=== PATIENT | male | born 1925 | race Caucasian/White ===

== ENCOUNTER 2017-10-20 23:04 | Inpatient (IN) ==
[2017-10-21] MEDS ORDERED: Bisacodyl 10 MG Supp RECTAL PRN (06:48)
[2017-10-21] MEDS ORDERED: Acetaminophen 325 MG Tablet PO PRN (06:48)
--- NOTE | 2017-10-21 09:10 | P.HP ---
History of Present Illness Primary Care Physician: Dr Munoz Chief Complaint: Hypoxia and fall History of Present Illness: This is a 89-year-old male with a history of seizure disorder, traumatic brain injury, encephalitis, anxiety, hyperlipidemia, hypertension, peripheral vascular disease status post bilateral CEA and chronic respiratory failure from a lung condition (patient and not able to specify, both not a good historian. Also denies history of heart disease). Family history of hypertension. Patient recently discharged from [facility] because of colitis. Yesterday patient's called 911 because the pulse oximeter machine was beeping and found out that the machine was not plugged in. At that time, patient denies any symptoms including chest pain and shortness of breath. Yesterday he had a fall from losing his balance and hit his right upper back. Denies head and neck injury. No loss of consciousness. Patient states he has been having falls for the last 2 years. In the emergency department, patient was found to have elevated troponin. EKG tracing interpreted by me showing sinus rhythm with a right bundle branch block no previous EKG for comparison. Patient denies history of heart disease, DVT and PE. He has chronic bilateral lower extremity swelling but denies dyspnea on exertion, orthopnea and proximal nocturnal dyspnea. States he takes about 3-6 medications unable to recall. He gets his medicines from [facility] RN requested to obtain med list. Also to call back with medication list. All other systems reviewed negative Inpatient Certification: I certify that the inpatient services were ordered in accordance with Medicare regulations governing the order. This includes certification that hospital inpatient services are reasonable and necessary and in the case of services not specified as inpatient-only under 42 CFR 419.22(n), that they are appropriately provided as inpatient services in accordance to with the 2-midnight benchmark under 43 CFR 412.3(e) Review of Systems All other systems reviewed negative except as stated in HPI PMFSH - History History Provided By: Patient, Family Member - Medical History Medical History: Medical History (Last Reviewed 10/21/17 @ 04:36 by Ander Leblanc) Anxiety High cholesterol Hypertension Seizure - Surgical History Surgical History: Surgical History (Last Reviewed 10/21/17 @ 04:36 by Ander Leblanc) Hx of hernia repair - Tobacco History Smoking Status: Former smoker - Alcohol History How Often Do You Have a Drink Containing Alcohol: Never Medications and Allergies Active Medications: Active Medications Acetaminophen (Tylenol) 650 mg PO Q4H PRN PRN Reason: Temp > 100.4 Aspirin (Ecotrin) 325 mg PO DAILY MELIDA Bisacodyl (Dulcolax Supp) 10 mg RECTAL DAILY PRN PRN Reason: SEVERE CONSITIPATION Clonidine HCl (Catapres) 0.1 mg PO Q6H PRN PRN Reason: SEE LABEL COMMENTS Enalaprilat (Vasotec Inj) 1.25 mg IV.PUSH Q6H PRN PRN Reason: SEE LABEL COMMENTS Furosemide (Lasix Inj) 20 mg IV.PUSH BID@0900,1800 MELIDA Heparin Sodium (Porcine) (Heparin Inj) 5,000 units SQ Q8HR MELIDA Ondansetron HCl (Zofran Inj) 4 mg IV.PUSH Q6H PRN PRN Reason: NAUSEA OR VOMITING Potassium Chloride (K-Dur) 20 meq PO BID MELIDA Potassium Chloride (K-Dur) 20 meq PO ONCE ONE Stop: 10/21/17 08:47 Sennosides (Senokot) 17.2 mg PO Q12H PRN PRN Reason: Moderate Constipation Allergies Allergy/AdvReac Type Severity Reaction Status Date / Time No Known Allergies Allergy Verified 10/20/17 23:31 Home Medications Medication Instructions Recorded Confirmed Type Unable to Obtain Home Meds 10/20/17 10/20/17 History Exam Vital signs: Vital Signs 10/21/17 07:52 Temperature 98.6 F Pulse Rate 77 Respiratory Rate 18 Blood Pressure 196/92 H Pulse Oximetry 94 L Narrative: GENERAL: Well-developed, well-nourished in no distress on 3 L nasal cannula SKIN: Warm and dry. HEAD: Atraumatic. Normocephalic. EYES: Pupils equal and round. No scleral icterus. No injection or drainage. ENT: No nasal bleeding or discharge. Mucous membranes pink and moist. NECK: Trachea midline. No JVD. CARDIOVASCULAR: Regular rate and rhythm. Heart murmur noted RESPIRATORY: No accessory muscle use. Bibasilar crackles. Breath sounds equal bilaterally. GASTROINTESTINAL: Abdomen soft, non-tender, nondistended. MUSCULOSKELETAL: Extremities without clubbing, cyanosis but with bilateral lower extremity pitting edema. No obvious deformities. NEUROLOGICAL: Awake and alert. No obvious cranial nerve deficits. Motor grossly within normal limits. Five out of 5 muscle strength in the arms and legs. Normal speech. PSYCHIATRIC: Appropriate mood and affect; insight and judgment normal. Caprini VTE Risk Assessment Caprini VTE Risk Assessment: Moderate/High Risk (score >= 2) Caprini Risk Assessment Model: Point Value = 1 Point Value = 2 Point Value = 3 Point Value = 5 Age 41-60 Minor surgery BMI > 25 kg/m2 Swollen legs Varicose veins or History of unexplained or recurrent spontaneous Oral contraceptives or hormone replacement Sepsis (< 1 month) Serious lung disease, including pneumonia (< 1 month) Abnormal pulmonary function Acute myocardial infarction Congestive heart failure (< 1 month) History of inflammatory bowel disease Medical patient at bed rest Age 61-74 Arthroscopic surgery Major open surgery (> 45 min) Laparoscopic surgery (> 45 min) Malignancy Confined to bed (> 72 hours) Immobilizing plaster cast Central venous access Age >= 75 History of VTE Family history of VTE Factor V Leiden Prothrombin [id number] Lupus anticoagulant Anticardiolipin antibodies Elevated serum homocysteine Heparin-induced thrombocytopenia Other congenital or acquired thrombophilia Stroke (< 1 month) Elective arthroplasty Hip, pelvis, or leg fracture Acute spinal cord injury (< 1 month) Prophylaxis Regimen: Total Risk Factor Score Risk Level Prophylaxis Regimen 0-1 Low Early ambulation 2 Moderate Order ONE of the following: *Sequential Compression Device (SCD) *Heparin 5000 units SQ BID 3-4 Higher Order ONE of the following medications: *Heparin 5000 units SQ TID *Enoxaparin/Lovenox 40 mg SQ daily (WT < 150 kg, CrCl > 30 mL/min) *Enoxaparin/Lovenox 30 mg SQ daily (WT < 150 kg, CrCl > 10-29 mL/min) *Enoxaparin/Lovenox 30 mg SQ BID (WT < 150 kg, CrCl > 30 mL/min) AND/OR *Sequential Compression Device (SCD) 5 or more Highest Order ONE of the following medications: *Heparin 5000 units SQ TID (Preferred with Epidurals) *Enoxaparin/Lovenox 40 mg SQ daily (WT < 150 kg, CrCl > 30 mL/min) *Enoxaparin/Lovenox 30 mg SQ daily (WT < 150 kg, CrCl > 10-29 mL/min) *Enoxaparin/Lovenox 30 mg SQ BID (WT < 150 kg, CrCl > 30 mL/min) AND *Sequential Compression Device (SCD) Assessment and Plan - Plan This is a 89-year-old male with a history of seizure disorder, traumatic brain injury, encephalitis, anxiety, hyperlipidemia, hypertension, peripheral vascular disease status post bilateral CEA and chronic respiratory failure from a lung condition (patient and not able to specify, both not a good historian. Also denies history of heart disease). Patient recently discharged from [facility] because of colitis. Presents with bilateral lower extremity edema, elevated BNP and abnormal chest x-ray image interpreted by me with bibasilar airspace consolidation. He also has left pleural effusion. New onset heart failure. CHF education, I/L and monitor weight. Start Lasix 20 mg IV every 12 hours. Obtain 2D echo. Elevated troponin. EKG with no ST elevation. Patient denies chest pain. Continue to trend cardiac enzymes. Start aspirin. Consult cardiology Hypokalemia. Replace with 40 mg p.o. 1 then 20 mg p.o. twice a day while on IV Lasix. Repeat BMP and magnesium in the morning Hemoglobin of 8.5. Patient claims he has history of anemia. No gross bleeding. Hemoccult stools. Uncontrolled hypertension. Lasix will be started. As needed clonidine and IV Vasotec. Recurrent falls. Fall precautions. PT evaluation. Recent colitis. Monitor for dehydration and electrolyte abnormalities. RN to obtain home meds DVT prophylaxis with SCD and subcu heparin
[2017-10-21] MEDS: Heparin - SQ 10,000 UNITS/ML Vial SQ SCH ×3 (10:36→21:22)
[2017-10-21 11:42] LABS: Troponin I 0.12 ng/mL (0.02-0.05)
[2017-10-21] MEDS: Famotidine 20 MG Tablet PO SCH ×2 (12:37→21:23)
--- NOTE | 2017-10-21 16:13 | ECHRPT ---
Indication: HEART FAILURE CONCLUSIONS The left ventricular systolic function is normal with an estimated ejection fraction in the range of 60-65%. Normal left ventricular size. Wall thickness is normal. No regional wall motion abnormalities are present. Trace mitral valve regurgitation. Mitral annular calcification is present. Diffuse calcification of the aortic valve. There is trace tricuspid valve regurgitation. The estimated pulmonary arterial pressure is 44.3 mmHg. The inferior vena cava was not well visualized. BP: / HR: Rhythm: MEASUREMENTS (Male / Female) Normal Values Technical Quality:Fair 2D ECHO LV Diastolic Diameter PLAX 4.4 cm 4.2 - 5.9 / 3.9 - 5.3 cm LV Systolic Diameter PLAX 3.0 cm IVS Diastolic Thickness 0.9 cm 0.6 - 1.0 / 0.6 - 0.9 cm LVPW Diastolic Thickness 0.8 cm 0.6 - 1.0 / 0.6 - 0.9 cm LV Relative Wall Thickness 0.4 RV Internal Dim ED PLAX 2.4 cm LVOT Diameter 2.0 cm LA Systolic Diameter LX 4.0 cm 3.0 - 4.0 / 2.7 - 3.8 cm LV Ejection Fraction MOD 4C 66.7 % LV Ejection Fraction 4C AL 67.1 % M-MODE Aortic Root Diameter MM 2.3 cm LA Systolic Diameter MM 1.2 cm LA Ao Ratio MM 0.5 AV Cusp Separation MM 1.3 cm DOPPLER AV Peak Velocity 168.0 cm/s AV Peak Gradient 11.3 mmHg LVOT Peak Velocity 112.0 cm/s LVOT Peak Gradient 5.0 mmHg AV Area Cont Eq pk 2.1 cm MV Area PHT 5.2 cm Mitral A Point Velocity 120.0 cm/s LV E' Lateral Velocity 6.7 cm/s LV E' Septal Velocity 7.7 cm/s TV Peak Velocity 205.0 cm/s TR Peak Velocity 293.0 cm/s TR Peak Gradient 34.3 mmHg Right Atrial Pressure 10.0 mmHg Pulmonary Artery Systolic Pressu 44.3 mmHg Right Ventricular Systolic Press 44.3 mmHg PV Peak Velocity 141.0 cm/s PV Peak Gradient 8.0 mmHg FINDINGS LEFT VENTRICLE The left ventricular systolic function is normal with an estimated ejection fraction in the range of 60-65%. Normal left ventricular size. Wall thickness is normal. No regional wall motion abnormalities are present. RIGHT VENTRICLE Normal right ventricular size and systolic function. LEFT ATRIUM The left atrial size is normal. RIGHT ATRIUM The right atrial size is normal. ATRIAL SEPTUM Normal atrial septal thickness without atrial level shunting by limited color doppler interrogation. AORTA The aortic root and proximal ascending aorta are normal in size on limited imaging. MITRAL VALVE Structurally normal mitral valve. Trace mitral valve regurgitation. Mitral annular calcification is present. AORTIC VALVE Trileaflet aortic valve. Diffuse calcification of the aortic valve. TRICUSPID VALVE Structurally normal tricuspid valve. There is trace tricuspid valve regurgitation. The estimated pulmonary arterial pressure is 44.3 mmHg. PULMONARY VALVE No pulmonary valve regurgitation or stenosis. VESSELS The inferior vena cava was not well visualized. PERICARDIUM No pericardial effusion. Rg Rojas MD, FACC, FSCAI (Electronically Signed) Final Date:21 October 2017 16:12
--- NOTE | 2017-10-21 16:43 | MB ---
cc: Rg Rojas MD DATE: 10/21/2017 HISTORY OF PRESENT ILLNESS: The patient is a very pleasant 89-year-old gentleman who states he came to the hospital due to fevers. He denies chest pain, shortness of breath, GI or bleeding, orthopnea, syncope or dizziness. PAST MEDICAL HISTORY: Per history of history of present illness. He has a history of anxiety, hyperlipidemia, hypertension, seizure disorder, hernia repair. ALLERGIES: NONE. SOCIAL HISTORY: Former smoker. Denies alcohol use. MEDICATIONS: 1. Aspirin 325 daily. 2. Pepcid 20 mg b.i.d. 3. Lasix 20 mg IV b.i.d. 4. Heparin 5000 subcutaneous every 8 hours. 5. K-Dur 20 mEq b.i.d. 6. Vancomycin 125 mg q.i.d. p.o. PHYSICAL EXAMINATION: VITAL SIGNS: Temperature 98.4, pulse 83, blood pressure 148/70, respiratory rate 18, blood pressure 196/92. GENERAL: He is alert and oriented x2-3, in no acute distress. NECK: Supple. No JVD. No bruit. CARDIOVASCULAR: S1, S2. No murmurs, rubs, gallops. LUNGS: Clear to auscultation bilaterally. ABDOMEN: Soft, nontender, nondistended with positive bowel sounds. EXTREMITIES: No extremity edema. LABORATORY DATA: Troponin 0.12. Magnesium 2.0, CK 118, 7.2. Hemoglobin 8.5, hematocrit 27.2, platelet count 306. Sodium 144, potassium 3.4, chloride 103, bicarbonate 34, BUN 9, creatinine 0.70, glucose 108. BNP 149. Initial troponin 0.12. Albumin 2.3. EKG: Normal sinus rhythm at 76 beats per minute, right bundle branch block. Head CT: No acute intracranial abnormalities identified. Chronic findings include generalized atrophy, periventricular white matter change and right temporal lobe encephalomalacia. Cervical spine CT: Left pleural effusion, severe degenerative disk disease is present at C5-C6 and C6-C7 with neural foraminal narrowing bilaterally at these levels. No acute cervical spine abnormalities identified. There is anterolisthesis of C3 on C4 and C4 on C5, likely related to facet arthrosis. Chest x-ray: Bibasilar airspace consolidation. Cervical spine CT demonstrates small left pleural effusion, severe atherosclerotic disease of the aorta. DIAGNOSES: 1. [id number] myocardial infarction. 2. Hypertension. 3. Pneumonia. 4. Pleural effusion. 5. Peripheral vascular disease with severe atherosclerotic disease of the aorta. 6. Right temporal lobe encephalomalacia. 7. Right bundle branch block. 8. Anemia. 9. Hypokalemia. 10. Decompensated congestive heart failure. 11. Hypoalbuminemia. DISCUSSION: I suspect that his troponin elevation is probably secondary to severe hypertension; however, given his age and multiple risk factors, cannot rule out primary ischemic etiology. He is currently asymptomatic. Also, suspect that low oxygen supply due to systemic hypoxemia and anemia may also be contributing as well. At this point in time, I recommend supportive care. Continue diuresis, aspirin, follow trends in BNP and hemoglobin. Rg Rojas MD AWC/es/ll , 03:50 PM , 04:00 PM
[2017-10-22] MEDS: Heparin - SQ 10,000 UNITS/ML Vial SQ SCH ×3 (07:16→21:37)
[2017-10-22 08:06] LABS: Baso # (Auto) 0.1 th/mm3 (0.0-0.2); Eos # (Auto) 0.2 th/mm3 (0.0-0.4); Hematocrit 29.1 % (39.0-51.0); Hemoglobin 9.3 gm/dL (13.0-17.0); Lymph # (Auto) 1.8 th/mm3 (1.0-4.8); Lymph % (Auto) 29.8 % (9.0-44.0); Mean Corpuscular Hemoglobin 28.3 pg (27.0-34.0); Mean Corpuscular Volume 88.6 fL (80.0-100.0); Mean Platelet Volume 7.2 fL (7.0-11.0); Mono # (Auto) 0.8 th/mm3 (0.0-0.9); Neut # (Auto) 3.2 th/mm3 (1.8-7.7); Neut % (Auto) 53.2 % (16.0-70.0); Platelet Count 323 th/mm3 (150-450); Red Blood Count 3.29 mil/mm3 (4.50-5.90)
[2017-10-22 08:29] LABS: Anion Gap 8 meq/L (5-15); Blood Urea Nitrogen 6 mg/dL (7-18); Calcium 7.9 mg/dL (8.5-10.1); Carbon Dioxide 33.7 meq/L (21.0-32.0); Chloride 101 meq/L (98-107); Glomerular Filtration Rate Greater Than 89 mL/min (>89); Glucose,Random 93 mg/dL (74-106); Potassium 3.3 meq/L (3.5-5.1); Sodium 143 meq/L (136-145)
[2017-10-22] MEDS: Phenytoin Sodium 100 MG Capsule PO SCH (10:20)
[2017-10-22] MEDS: dilTIAZem CD 180 MG Capsule PO SCH (10:22)
[2017-10-22] MEDS: Famotidine 20 MG Tablet PO SCH ×2 (10:22→21:37)
[2017-10-22] MEDS: FLUoxetine 10 MG Capsule PO SCH (10:30)
[2017-10-22 11:51] LABS: Troponin I 0.08 ng/mL (0.02-0.05)
[2017-10-22] MEDS ORDERED: Potassium Chloride 25 MEQ Effervescent Tablet PO ONE (13:25)
--- NOTE | 2017-10-22 13:27 | P.PNCA ---
Subjective Interval history: asleep in nad Physical Exam Vital signs: Vital Signs 10/21/17 16:41 10/21/17 19:29 10/22/17 00:00 Temperature 100.4 F H 98.2 F 98.1 F Pulse Rate 84 84 80 Respiratory Rate 20 19 22 Blood Pressure 127/62 196/84 H 185/82 H Pulse Oximetry 90 L 89 L 94 L 10/22/17 03:57 10/22/17 08:04 10/22/17 12:06 Temperature 98.1 F 97.7 F 98.0 F Pulse Rate 78 79 96 H Respiratory Rate 20 18 16 Blood Pressure 180/78 H 188/89 H 125/70 Pulse Oximetry 94 L 96 95 Intake & Output 10/21/17 10/22/17 10/22/17 18:59 06:59 18:59 Intake Total 240 / 240 Output Total 700 / 700 250 / 250 400 / 400 Balance -700 / -700 -250 / -250 -160 / -160 Weight 87.5 kg Intake: Oral 240 / 240 Output: Urine 700 / 700 250 / 250 400 / 400 Other: Post Void Residual 250 # Voids 1 Date of Last Bowel Movement 10/21/17 Weight On Admission 87.4 kg Assessment and Plan - Assessment (1) NSTEMI (non-ST elevated myocardial infarction) Code(s): I21.4 - Non-ST elevation (NSTEMI) myocardial infarction Status: Acute (2) CHF (congestive heart failure) Code(s): I50.9 - Heart failure, unspecified Status: Acute (3) Pneumonia Code(s): J18.9 - Pneumonia, unspecified organism Status: Acute (4) Anemia Code(s): D64.9 - Anemia, unspecified Status: Acute (5) HTN (hypertension) Code(s): I10 - Essential (primary) hypertension Status: Acute (6) Dementia Code(s): F03.90 - Unspecified dementia without behavioral disturbance Status: Acute - Plan 1.) NSTEMI - assymptomatic, continue aspiirn, pravachol; troponin trending down , suspect elevation due to htn, anemia and hypoxia 2.) CHF - ef=60%, prn lasix, cozaar, trend bnp
--- NOTE | 2017-10-22 13:54 | P.PN ---
Subjective Interval history: follow up for fall, elevated trop: pt. awake, disoriented. Oriented to self and place, sleepy. Denies any CP, sob when asked. Tele reviewed, No active bleeding , had diarrhea yesterday. No acute changes overnight Physical Exam Vital signs: Vital Signs 10/21/17 16:41 10/21/17 19:29 10/22/17 00:00 Temperature 100.4 F H 98.2 F 98.1 F Pulse Rate 84 84 80 Respiratory Rate 20 19 22 Blood Pressure 127/62 196/84 H 185/82 H Pulse Oximetry 90 L 89 L 94 L 10/22/17 03:57 10/22/17 08:04 10/22/17 12:06 Temperature 98.1 F 97.7 F 98.0 F Pulse Rate 78 79 96 H Respiratory Rate 20 18 16 Blood Pressure 180/78 H 188/89 H 125/70 Pulse Oximetry 94 L 96 95 Intake & Output 10/21/17 10/22/17 10/22/17 18:59 06:59 18:59 Intake Total 240 / 240 Output Total 700 / 700 250 / 250 400 / 400 Balance -700 / -700 -250 / -250 -160 / -160 Weight 87.5 kg Intake: Oral 240 / 240 Output: Urine 700 / 700 250 / 250 400 / 400 Other: Post Void Residual 250 # Voids 1 Date of Last Bowel Movement 10/21/17 Weight On Admission 87.4 kg Narrative: GENERAL: 89 y.o. elderly male pt. NAD SKIN: Warm and dry. HEAD: Atraumatic. Normocephalic. EYES: Pupils equal and round. No scleral icterus. No injection or drainage. ENT: No nasal bleeding or discharge. Mucous membranes pink and moist. NECK: Trachea midline. No JVD. CARDIOVASCULAR: Regular rate and rhythm. RESPIRATORY: No accessory muscle use. Diminished. Poor inspiratory effort. GASTROINTESTINAL: Abdomen soft, non-tender, nondistended. Hepatic and splenic margins not palpable. MUSCULOSKELETAL: Extremities without clubbing, cyanosis, trace pedal edema. Pedal pulses 2+. No obvious deformities. NEUROLOGICAL: Awakes to voice, oriented x 1-2. No focal deficits. Forgetful. PSYCHIATRIC: Appropriate mood, forgetful. Results - Labs CBC & Chem 7: 10/22/17 06:00 10/22/17 06:00 Laboratory Results - last 24 hr 10/21/17 10/22/17 10/22/17 17:44 06:00 06:00 WBC 6.0 RBC 3.29 L Hgb 9.3 L Hct 29.1 L MCV 88.6 D MCH 28.3 MCHC 32.0 RDW 16.0 Plt Count 323 MPV 7.2 Neut % (Auto) 53.2 Lymph % (Auto) 29.8 Bonner % (Auto) 13.0 H Eos % (Auto) 3.0 Baso % (Auto) 1.0 Neut # (Auto) 3.2 Lymph # (Auto) 1.8 Bonner # (Auto) 0.8 Eos # (Auto) 0.2 Baso # (Auto) 0.1 WBC Differential . Differential Comment Auto diff final Sodium 143 Potassium 3.3 L Chloride 101 Carbon Dioxide 33.7 H Anion Gap 8 BUN 6 L Creatinine 0.47 L Estimated GFR Greater than 89 Random Glucose 93 Calcium 7.9 L Total Creatine Kinase Troponin I B-Natriuretic Peptide St C. diff Tox Epid 027 Negative C. difficile Tox (PCR) Negative 10/22/17 10/22/17 06:00 10:58 WBC RBC Hgb Hct MCV MCH MCHC RDW Plt Count MPV Neut % (Auto) Lymph % (Auto) Bonner % (Auto) Eos % (Auto) Baso % (Auto) Neut # (Auto) Lymph # (Auto) Bonner # (Auto) Eos # (Auto) Baso # (Auto) WBC Differential Differential Comment Sodium Potassium Chloride Carbon Dioxide Anion Gap BUN Creatinine Estimated GFR Random Glucose Calcium Total Creatine Kinase 104 Troponin I 0.08 H B-Natriuretic Peptide [address] C. diff Tox Epid 027 C. difficile Tox (PCR) Microbiology 10/21/17 17:44 Stool Stool Occult Blood (MARNI) - Final Hemoccult negative Assessment and Plan - Assessment (1) CHF (congestive heart failure) Code(s): I50.9 - Heart failure, unspecified Status: Acute (2) Anemia Code(s): D64.9 - Anemia, unspecified Status: Chronic (3) Dementia Code(s): F03.90 - Unspecified dementia without behavioral disturbance Status: Chronic (4) HTN (hypertension) Code(s): I10 - Essential (primary) hypertension Status: Chronic (5) NSTEMI (non-ST elevated myocardial infarction) Code(s): I21.4 - Non-ST elevation (NSTEMI) myocardial infarction Status: Acute (6) Pneumonia Code(s): J18.9 - Pneumonia, unspecified organism Status: Acute - Plan 89-year-old male with a history of seizure disorder, traumatic brain injury, encephalitis, anxiety, hyperlipidemia, hypertension, peripheral vascular disease status post bilateral CEA and chronic respiratory failure from a lung condition (patient and not able to specify, both not a good historian. Also denies history of heart disease). Patient recently discharged from [facility] because of colitis. Presents with bilateral lower extremity edema, elevated BNP and abnormal chest x-ray concerning for bibasilar airspace consolidation. Also has left pleural effusion. New onset heart failure. -CHF education, -I/O -Continue Lasix 20 mg IV every 12 hours. -2D echo EF 60 to 65% -appreciate cardiology input, continue with diuretics Elevated troponin. EKG with no ST elevation. Patient denies chest pain. -Trop, didn't trend up, likely cause CHF. -continue aspirin and statin -appreciate card input, likely etiology CHF. Due to advanced age and comorbidities, continue with med management Hypokalemia -Replace K, and continue with 20 meq p.o. twice a day while on IV Lasix. -Repeat BMP in the morning Hemoglobin of 8.5. Patient claims he has history of anemia. No gross bleeding. -Hemoccult stools-pending -monitor CBC CXR with findings of bibasilar airspace consolidation, spiked fever yesterday -will start empirically on Zithromax and monitor Uncontrolled hypertension BP elevated still -continue Lasix, Cozaar, Cardizem -As needed clonidine and IV Vasotec. Recurrent falls. -Fall precautions. -PT evaluation. Recent colitis. -Monitor for dehydration and electrolyte abnormalities. -Continue Vancomycin PO -had diarrhea, negative cdiff DVT prophylaxis with SCD and subcu heparin CM for dc planning-will need SNF poss dc 1-2 days D/W RN, CM, pt (1) CHF (congestive heart failure) Qualifiers: Heart failure type: diastolic Heart failure chronicity: acute Qualified Code (s): I50.31 - Acute diastolic (congestive) heart failure (2) Anemia Qualifiers: Anemia type: unspecified type Qualified Code(s): D64.9 - Anemia, unspecified (3) Dementia Qualifiers: Alzheimer's disease onset: unspecified onset Dementia behavioral disturbance : without behavioral disturbance (4) HTN (hypertension) Qualifiers: Hypertension type: essential hypertension Qualified Code(s): I10 - Essential (primary) hypertension (6) Pneumonia Qualifiers: Pneumonia type: due to unspecified organism Laterality: bilateral Lung location: lower lobe of lung Qualified Code(s): J18.1 - Lobar pneumonia, unspecified organism
[2017-10-22] MEDS: Azithromycin 250 MG Tablet PO SCH (18:06)
[2017-10-23] MEDS: Heparin - SQ 10,000 UNITS/ML Vial SQ SCH ×2 (06:32→13:55)
[2017-10-23 06:47] LABS: Hematocrit 29.7 % (39.0-51.0); Hemoglobin 9.5 gm/dL (13.0-17.0); Mean Corpuscular HGB Conc 31.8 % (32.0-36.0); Mean Corpuscular Hemoglobin 28.4 pg (27.0-34.0); Mean Corpuscular Volume 89.3 fL (80.0-100.0); Mean Platelet Volume 7.2 fL (7.0-11.0); Platelet Count 295 th/mm3 (150-450); Red Blood Count 3.33 mil/mm3 (4.50-5.90); Red Cell Distribution Width 16.5 % (11.6-17.2); White Blood Count 6.1 th/mm3 (4.0-11.0)
[2017-10-23 07:42] LABS: Anion Gap 5 meq/L (5-15); Blood Urea Nitrogen 11 mg/dL (7-18); Calcium 8.1 mg/dL (8.5-10.1); Carbon Dioxide 33.6 meq/L (21.0-32.0); Chloride 102 meq/L (98-107); Glomerular Filtration Rate Greater Than 89 mL/min (>89); Glucose,Random 93 mg/dL (74-106); Sodium 141 meq/L (136-145)
--- NOTE | 2017-10-23 10:01 | P.PN ---
Subjective Interval history: follow up for fall, elevated trop: Patient more awake and oriented now 3. Indicates that he was brought here by because he was not feeling good. He wants to go to rehab. Has good appetite. Had a loose bowel movement, no obvious bleeding. No nausea, no vomiting. No fevers overnight. Denies any chest pain, shortness of breath. Physical Exam Vital signs: Vital Signs 10/22/17 12:06 10/22/17 15:21 10/22/17 19:26 Temperature 98.0 F 98.0 F 98.9 F Pulse Rate 96 H 71 68 Respiratory Rate 16 20 18 Blood Pressure 125/70 151/72 H 167/79 H Pulse Oximetry 95 95 95 10/22/17 20:00 10/22/17 22:55 10/23/17 00:00 Temperature 98.3 F Pulse Rate 71 69 68 Respiratory Rate 16 Blood Pressure 161/72 H Pulse Oximetry 95 10/23/17 03:28 10/23/17 04:00 10/23/17 07:40 Temperature 98.8 F 97.8 F Pulse Rate 70 69 79 Respiratory Rate 18 14 Blood Pressure 139/72 175/81 H Pulse Oximetry 94 L 96 Intake & Output 10/22/17 10/23/17 10/23/17 18:59 06:59 18:59 Intake Total 480 / 480 Output Total 800 / 800 Balance -320 / -320 Intake: Oral 480 / 480 Output: Urine 800 / 800 Other: Post Void Residual 250 # Voids 1 Date of Last Bowel Movement 10/21/17 10/21/17 Narrative: GENERAL: 89 y.o. elderly male pt. NAD SKIN: Warm and dry. HEAD: Atraumatic. Normocephalic. EYES: Pupils equal and round. No scleral icterus. No injection or drainage. ENT: No nasal bleeding or discharge. Mucous membranes pink and moist. NECK: Trachea midline. No JVD. CARDIOVASCULAR: Regular rate and rhythm. RESPIRATORY: No accessory muscle use. Diminished. Poor inspiratory effort. GASTROINTESTINAL: Abdomen soft, non-tender, nondistended. Hepatic and splenic margins not palpable. MUSCULOSKELETAL: Extremities without clubbing, cyanosis, trace pedal edema. Pedal pulses 2+. No obvious deformities. NEUROLOGICAL: Awakes to voice, oriented x 3. Following commands, no focal deficits. PSYCHIATRIC: Appropriate mood. Results - Labs CBC & Chem 7: 10/23/17 06:30 10/23/17 06:30 Laboratory Results - last 24 hr 10/22/17 10/23/17 10/23/17 10:58 06:30 06:30 WBC 6.1 RBC 3.33 L Hgb 9.5 L Hct 29.7 L MCV 89.3 MCH 28.4 MCHC 31.8 L RDW 16.5 Plt Count 295 MPV 7.2 Sodium Potassium Chloride Carbon Dioxide Anion Gap BUN Creatinine Estimated GFR Random Glucose Calcium Total Creatine Kinase 104 Troponin I 0.08 H B-Natriuretic Peptide 64 10/23/17 06:30 WBC RBC Hgb Hct MCV MCH MCHC RDW Plt Count MPV Sodium 141 Potassium 4.0 Chloride 102 Carbon Dioxide 33.6 H Anion Gap 5 BUN 11 Creatinine 0.64 Estimated GFR Greater than 89 Random Glucose 93 Calcium 8.1 L Total Creatine Kinase Troponin I B-Natriuretic Peptide Microbiology 10/22/17 18:40 Stool Stool Occult Blood (MARNI) - Final Hemoccult positive Assessment and Plan - Assessment (1) CHF (congestive heart failure) Code(s): I50.9 - Heart failure, unspecified Status: Acute (2) Anemia Code(s): D64.9 - Anemia, unspecified Status: Chronic (3) Dementia Code(s): F03.90 - Unspecified dementia without behavioral disturbance Status: Chronic (4) HTN (hypertension) Code(s): I10 - Essential (primary) hypertension Status: Chronic (5) NSTEMI (non-ST elevated myocardial infarction) Code(s): I21.4 - Non-ST elevation (NSTEMI) myocardial infarction Status: Acute (6) Pneumonia Code(s): J18.9 - Pneumonia, unspecified organism Status: Acute - Plan 89-year-old male with a history of seizure disorder, traumatic brain injury, encephalitis, anxiety, hyperlipidemia, hypertension, peripheral vascular disease status post bilateral CEA and chronic respiratory failure from a lung condition (patient and not able to specify, both not a good historian. Also denies history of heart disease). Patient recently discharged from [facility] ER because of colitis. Presents with bilateral lower extremity edema, elevated BNP and abnormal chest x-ray concerning for bibasilar airspace consolidation. Also has left pleural effusion. New onset heart failure. Diuresing well, no sob, no pedal edema. -CHF education -I/O -Change to PO Lasix. -2D echo EF 60 to 65% -appreciate cardiology input, continue with diuretics Elevated troponin. EKG with no ST elevation. Patient denies chest pain. -Trop, didn't trend up, likely cause CHF. -continue aspirin and statin -appreciate card input, likely etiology CHF. Due to advanced age and comorbidities, continue with med management Hypokalemia -Potassium okay. Decrease potassium to 20 MB daily while on p.o. Lasix. Hemoglobin of 8.5. Patient claims he has history of anemia. No gross bleeding. -Hemoccult stools-first 1 negative, second positive. -H&H stable -No obvious bleeding CXR with findings of bibasilar airspace consolidation, spiked fever yesterday No fever, no cough, no sputum. -Started empirically on Zithromax Uncontrolled hypertension BP improving. -continue Lasix, Cozaar, Cardizem -As needed clonidine and IV Vasotec. Recurrent falls. -Fall precautions. -PT evaluation. Recent colitis. -Monitor for dehydration and electrolyte abnormalities. -Continue Vancomycin PO -had diarrhea, negative cdiff DVT prophylaxis with SCD and subcu heparin Stable, No chest pain or shortness of breath CM for dc planning, has been accepted at [facility] Patient agreeable with going to rehab Discharge to rehab Follow up with PCP and cardiology Heart healthy diet Activity as tolerated (1) CHF (congestive heart failure) Qualifiers: Heart failure type: diastolic Heart failure chronicity: acute Qualified Code (s): I50.31 - Acute diastolic (congestive) heart failure (2) Anemia Qualifiers: Anemia type: unspecified type Qualified Code(s): D64.9 - Anemia, unspecified (3) Dementia Qualifiers: Alzheimer's disease onset: unspecified onset Dementia behavioral disturbance : without behavioral disturbance (4) HTN (hypertension) Qualifiers: Hypertension type: essential hypertension Qualified Code(s): I10 - Essential (primary) hypertension (6) Pneumonia Qualifiers: Pneumonia type: due to unspecified organism Laterality: bilateral Lung location: lower lobe of lung Qualified Code(s): J18.1 - Lobar pneumonia, unspecified organism
[2017-10-23] MEDS: Phenytoin Sodium 100 MG Capsule PO SCH (10:20)
[2017-10-23] MEDS: FLUoxetine 10 MG Capsule PO SCH (10:20)
[2017-10-23] MEDS: dilTIAZem CD 180 MG Capsule PO SCH (10:20)
[2017-10-23] MEDS: Famotidine 20 MG Tablet PO SCH (10:20)
[2017-10-23] MEDS: Azithromycin 250 MG Tablet PO SCH (10:22)
[2017-10-23 11:40] VITALS: BP 121/62; PULSE 77; RESP 12; TEMP 97.5
--- NOTE | 2017-10-23 11:46 | P.PNCA ---
Subjective Interval history: alert in nad, assymptomatic, wants to go home Physical Exam Vital signs: Vital Signs 10/22/17 12:06 10/22/17 15:21 10/22/17 19:26 Temperature 98.0 F 98.0 F 98.9 F Pulse Rate 96 H 71 68 Respiratory Rate 16 20 18 Blood Pressure 125/70 151/72 H 167/79 H Pulse Oximetry 95 95 95 10/22/17 20:00 10/22/17 22:55 10/23/17 00:00 Temperature 98.3 F Pulse Rate 71 69 68 Respiratory Rate 16 Blood Pressure 161/72 H Pulse Oximetry 95 10/23/17 03:28 10/23/17 04:00 10/23/17 07:40 Temperature 98.8 F 97.8 F Pulse Rate 70 69 79 Respiratory Rate 18 14 Blood Pressure 139/72 175/81 H Pulse Oximetry 94 L 96 10/23/17 11:37 Temperature 97.5 F L Pulse Rate 77 Respiratory Rate 12 Blood Pressure 121/62 Pulse Oximetry 87 L Intake & Output 10/22/17 10/23/17 10/23/17 18:59 06:59 18:59 Intake Total 480 / 480 Output Total 800 / 800 Balance -320 / -320 Intake: Oral 480 / 480 Output: Urine 800 / 800 Other: Post Void Residual 250 # Voids 1 Date of Last Bowel Movement 10/21/17 10/21/17 10/23/17 # Bowel Movements 1 Assessment and Plan - Assessment (1) NSTEMI (non-ST elevated myocardial infarction) Code(s): I21.4 - Non-ST elevation (NSTEMI) myocardial infarction Status: Acute (2) CHF (congestive heart failure) Code(s): I50.9 - Heart failure, unspecified Status: Acute (3) Pneumonia Code(s): J18.9 - Pneumonia, unspecified organism Status: Acute (4) Anemia Code(s): D64.9 - Anemia, unspecified Status: Chronic (5) HTN (hypertension) Code(s): I10 - Essential (primary) hypertension Status: Chronic (6) Dementia Code(s): F03.90 - Unspecified dementia without behavioral disturbance Status: Chronic - Plan 1.) NSTEMI - assymptomatic, continue aspiirn, pravachol; troponin trending down , suspect elevation due to htn, anemia and hypoxia 2.) CHF - ef=60%, prn lasix, cozaar, trend bnp, bnp wnl, euvolemic 3.) HTN - cardizem added 10/22/17 (2) CHF (congestive heart failure) Qualifiers: Heart failure type: diastolic Heart failure chronicity: acute Qualified Code (s): I50.31 - Acute diastolic (congestive) heart failure (3) Pneumonia Qualifiers: Pneumonia type: due to unspecified organism Laterality: bilateral Lung location: lower lobe of lung Qualified Code(s): J18.1 - Lobar pneumonia, unspecified organism (4) Anemia Qualifiers: Anemia type: unspecified type Qualified Code(s): D64.9 - Anemia, unspecified (5) HTN (hypertension) Qualifiers: Hypertension type: essential hypertension Qualified Code(s): I10 - Essential (primary) hypertension (6) Dementia Qualifiers: Alzheimer's disease onset: unspecified onset Dementia behavioral disturbance : without behavioral disturbance
[2017-10-23 11:57] VITALS: O2SAT 92
--- NOTE | 2017-10-23 14:33 | P.DS ---
Date of admission: 10/22/17 16:45 Primary care physician: Dr Munoz Attending physician on discharge: Alok Allred Anticipated date of discharge: 10/23/17 Brief History from admission: This is a 89-year-old male with a history of seizure disorder, traumatic brain injury, encephalitis, anxiety, hyperlipidemia, hypertension, peripheral vascular disease status post bilateral CEA and chronic respiratory failure from a lung condition (patient and not able to specify, both not a good historian. Also denies history of heart disease). Family history of hypertension. Patient recently discharged from [facility] because of colitis. Yesterday patient's called 911 because the pulse oximeter machine was beeping and found out that the machine was not plugged in. At that time, patient denies any symptoms including chest pain and shortness of breath. Yesterday he had a fall from losing his balance and hit his right upper back. Denies head and neck injury. No loss of consciousness. Patient states he has been having falls for the last 2 years. In the emergency department, patient was found to have elevated troponin. EKG tracing interpreted by me showing sinus rhythm with a right bundle branch block no previous EKG for comparison. Patient denies history of heart disease, DVT and PE. He has chronic bilateral lower extremity swelling but denies dyspnea on exertion, orthopnea and proximal nocturnal dyspnea. States he takes about 3-6 medications unable to recall. He gets his medicines from [facility] RN requested to obtain med list. Also to call back with medication list. All other systems reviewed negative DS: Diagnosis - Discharge Diagnosis (1) CHF (congestive heart failure) Status: Acute (2) Anemia Status: Chronic (3) Dementia Status: Chronic (4) HTN (hypertension) Status: Chronic (5) NSTEMI (non-ST elevated myocardial infarction) Status: Acute (6) Pneumonia Status: Acute DS: Summary Hospital Course: 89-year-old male with a history of seizure disorder, traumatic brain injury, encephalitis, anxiety, hyperlipidemia, hypertension, peripheral vascular disease status post bilateral CEA and chronic respiratory failure from a lung condition (patient and not able to specify, both not a good historian. Also denies history of heart disease). Patient recently discharged from [facility] because of colitis. Presents with bilateral lower extremity edema, elevated BNP and abnormal chest x-ray concerning for bibasilar airspace consolidation. Also has left pleural effusion. Pt. admitted with: New onset heart failure. Diuresing well, no sob, no pedal edema. -CHF education -I/O -Was started on IV Lasix, diuresing well. Change to p.o. Lasix. -2D echo EF 60 to 65% -Cardiology consulted, agreed with diuretics. Order echo. Elevated troponin. EKG with no ST elevation. Patient denies chest pain. -Trop, didn't trend up, likely cause CHF. -continued aspirin and statin -appreciate card input, likely etiology CHF. Due to advanced age and comorbidities, continue with med management Hypokalemia -Was put on potassium replacement while on Lasix. BMP followed daily Hemoglobin of 8.5 on admission. Patient claims he has history of anemia. No gross bleeding. -Hemoccult stools-first 1 negative, second positive. -H&H stable -No obvious bleeding CXR with findings of bibasilar airspace consolidation, spiked fever on admission. No fever, no cough, no sputum. -Started empirically on Zithromax Uncontrolled hypertension BP up initially, did improve -continued Lasix, Cozaar, Cardizem -As needed clonidine and IV Vasotec were ordered. Recurrent falls. -Fall precautions. -PT evaluation -pt. improved mobility, was getting out of bed with one assist. Recent colitis. -Monitored for dehydration and electrolyte abnormalities. -Continued Vancomycin PO -had diarrhea, negative cdiff -stools more formed. No obvious bleeding DVT prophylaxis with SCD and subcu heparin Stable, No chest pain or shortness of breath CM for dc planning recommended SFN, pt. agreeable. Discharged to rehab Instructed to Follow up with PCP and cardiology Heart healthy diet Activity as tolerated - Time Spent with Patient Total time spent providing and/or coordinating discharge services:35 Greater than 30 minutes - Quality: VTE Deep Vein Thrombosis/Pulmonary Embolism Present on Admission: No Exam Vital signs: Vital Signs 10/22/17 15:21 10/22/17 19:26 10/22/17 20:00 Temperature 98.0 F 98.9 F Pulse Rate 71 68 71 Respiratory Rate 20 18 Blood Pressure 151/72 H 167/79 H Pulse Oximetry 95 95 10/22/17 22:55 10/23/17 00:00 10/23/17 03:28 Temperature 98.3 F 98.8 F Pulse Rate 69 68 70 Respiratory Rate 16 18 Blood Pressure 161/72 H 139/72 Pulse Oximetry 95 94 L 10/23/17 04:00 10/23/17 07:40 10/23/17 10:30 Temperature 97.8 F Pulse Rate 69 79 80 Respiratory Rate 14 Blood Pressure 175/81 H Pulse Oximetry 96 10/23/17 11:37 10/23/17 11:57 Temperature 97.5 F L Pulse Rate 77 Respiratory Rate 12 Blood Pressure 121/62 Pulse Oximetry 87 L 92 L Intake & Output 10/22/17 10/23/17 10/23/17 18:59 06:59 18:59 Intake Total 480 / 480 Output Total 800 / 800 Balance -320 / -320 Intake: Oral 480 / 480 Output: Urine 800 / 800 Other: Post Void Residual 250 # Voids 1 Date of Last Bowel Movement 10/21/17 10/21/17 10/23/17 # Bowel Movements 1 Results Procedures completed during hospitalization: none Labs on day of discharge: Labs from last 24 hours 10/23/17 10/23/17 10/23/17 06:30 06:30 06:30 WBC 6.1 RBC 3.33 L Hgb 9.5 L Hct 29.7 L MCV 89.3 MCH 28.4 MCHC 31.8 L RDW 16.5 Plt Count 295 MPV 7.2 Sodium 141 Potassium 4.0 Chloride 102 Carbon Dioxide 33.6 H Anion Gap 5 BUN 11 Creatinine 0.64 Estimated GFR Greater than 89 Random Glucose 93 Calcium 8.1 L B-Natriuretic Peptide 64 Discharge Plan - Discharge Disposition Patient Disposition: 03 Discharge to SNF - Discharge Condition Condition: Stable - Discharge Order Discharge Orders: Discharge Order (Routine); Ordered 10/23/17 Ordered By: Sue Atkinson - Discharge Details Anticipated Discharge Date: 10/23/17 - Physicians Team Attending Provider: Alok Allred Other Providers: Rg Rojas MD - Rxs /Orders / Referrals /Forms Prescriptions: New azithromycin 250 mg Tablet 500 mg PO DAILY RF: 0 furosemide 40 mg Tablet 40 mg PO DAILY RF: 0 Continue aspirin 325 mg Tablet 325 mg PO DAILY cholecalciferol (vitamin D3) [Vitamin D3] 2,000 unit Capsule 2,000 unit PO DAILY diltiazem HCl 180 mg Capsule,Extended Release 24 Hr 180 mg PO DAILY fluoxetine 10 mg Capsule 10 mg PO DAILY losartan 25 mg Tablet 25 mg PO DAILY phenytoin sodium extended 100 mg Capsule 400 mg PO DAILY simvastatin 40 mg Tablet 40 mg PO QPM vancomycin 125 mg Capsule 125 mg PO QID Qty: 0 RF: 0 Changed famotidine 20 mg Tablet 20 mg PO DAILY Qty: 0 RF: 0 Changed from: 20 mg oral twice daily Referrals: Dr Tammy [Other] - See Instructions Rg Rojas MD [Physician] - See Instructions (follow up in 2 weeks ) - Discharge Instructions Patient Printed Instructions: Furosemide (By mouth), Azithromycin (By mouth), Heart Failure (DC), Hypoxia (GEN), Pneumonia (DC) - Post Discharge Care Plan Care Plan Goals: Discharge Care Plan Goals for Pneumonia You have been diagnosed with pneumonia. This is a serious lung infection. Most cases of pneumonia are caused by bacteria. Pneumonia most often occurs in older adults, young children, and people with chronic health problems. Directions to Meet your Goals: 1. Home care: * Take your medicine exactly as directed. Dont skip doses. Continue taking your antibiotics as until they are all gone, even if you start to feel better. This will prevent the pneumonia from coming back. * Drink at least 8 glasses of water daily, unless directed otherwise. This helps to loosen and thin secretions so that you can cough them up. * Use a cool-mist humidifier in your bedroom. Be sure to clean the humidifier daily. * Dont use medicines to suppress your cough unless your cough is dry, painful, or interferes with your sleep. Coughing up mucus is normal. You may use an expectorant if your doctor says its okay. * You can use warm compresses or a heating pad on the lowest setting to relieve chest discomfort. Use several times a day for 15-20 minutes at a time. To prevent injury to your skin, set the temperature to warm, not hot. Dont put the compress or pad directly on your skin. Make certain it has a cover or wrap it in a towel. This is to prevent skin shoemaker. * Get plenty of rest until your fever, shortness of breath, and chest pain go away. * Plan to get a flu shot every year. The flu is a common cause of pneumonia. Getting a flu shot every year can help prevent both the flu and pneumonia. 2. Getting the pneumococcal vaccine: * Talk with your doctor about getting the pneumococcal vaccine. Pneumococcal pneumonia is caused by bacteria that spread from person to person. It can cause minor problems, such as ear infections. But it can also turn into life- threatening illnesses of the lungs (pneumonia), the covering of the brain and spinal cord (meningitis), and the blood (bacteremia). * Make sure to ask your doctor if you should have the vaccine. Children under 2 years of age, adults over age 65, people with certain health conditions, and smokers are at the highest risk of pneumococcal disease. This vaccine can help prevent pneumococcal disease in both adults and children. 3. Follow-up care: Do Not miss your follow-up appointment. Keep up with all your appointments and yearly check ups 4. When to call your doctor: Call your doctor immediately if you have any of the following: Fever of 100.4F (38C) or higher, or as directed by your healthcare provider Mucus from the lungs (sputum) thats yellow, green, bloody, or smells bad Vomiting Any symptoms that get worse 5. Call 911: Call 911 right away if you have any of the following: Chest pain Trouble breathing Blue lips or fingernails
[2017-10-24] MEDS ORDERED: Furosemide 40 MG Tablet PO SCH (09:00)
== END 2017-10-23 16:10 ==
LOC: NEDDLT 23:04 → INTOOBSV 10-21 06:30 → NEPGCP 10-21 06:30
PROVIDERS: ADMIT Hospitalist; ATTEND Hospitalist